=== PATIENT | male | born 1935 | race Hispanic/Latino ===

== ENCOUNTER 2018-02-08 10:08 | Day surgery (SDC) | payer MEDICARE, BC ==
[2018-02-08 11:06] VITALS: BMI 25.9
--- NOTE | 2018-02-08 11:08 | CP.SDSHP ---
Same Day Surgery H & P - History Proposed Procedure: colonoscopy Pre-Op Diagnosis: screen - Previous Medical/Surgical History Endocrine/Metabolic: Diabetes - Allergies Allergies: Allergies cortisone Allergy (Severe, Verified 02/16/16 19:54) ITCHING - Physical Exam Mental Status: Alert & Oriented x3 Heart: WNL Lungs: WNL GI: WNL - Impression Impression: screen Pt. Evaluated Today:Candidate for Anesthesia & Procedure: Yes - Date & Time Date: 02/08/18 Time: 11:08 Short Stay Discharge - Short Stay Discharge Admitting Diagnosis/Reason for Visit: ENCOUNTER FOR SCREENING FOR MALIGNANT NEOPLASM OF Disposition: HOME/ ROUTINE
[2018-02-08] MEDS ORDERED: Lactated Ringer's 1,000 ML IV ONE ×2 (11:30)
[2018-02-08] MEDS ORDERED: Propofol 10 mg/ml Inj (20 ML) ONE (11:34)
[2018-02-08 12:36] VITALS: PULSE 50
[2018-02-08 12:38] VITALS: O2SAT 100
[2018-02-08 13:52] VITALS: BP 154/64; RESP 14; TEMP 97.4
== END 2018-02-08 13:45 | disposition home or self-care (01) ==
LOC: C.ENDO 10:08
PROVIDERS: ATTEND Internal Medicine Gastroenterology
DX: K57.30 Diverticulosis of large intestine without perforation or abscess without bleeding (principal); K62.5 Hemorrhage of anus and rectum; E11.9 Type 2 diabetes mellitus without complications; E78.5 Hyperlipidemia, unspecified; I10 Essential (primary) hypertension
CPT/HCPCS: 45378; 82948; J2704; J7120

== ENCOUNTER 2018-08-29 18:29 | Emergency (ER) | payer MEDICARE, BC ==
[2018-08-29 18:29] VITALS: BMI 25.9
[2018-08-29 18:42] VITALS: TEMP 98; O2SAT 96
--- NOTE | 2018-08-29 19:43 | C.PDOC ---
History Of Present Illness 83 year old male presents to the ED for evaluation. Patient was sleeping in his wheelchair at home, patient fell and hit his head that happened 2 days ago. Patient denies fever, chills, nausea, vomit, dizziness, visual changes, weakness, numbness, CP, SOB, palpitations. - HPI Time Seen by Provider: 08/29/18 19:21 Chief Complaint (Nursing): Trauma History Per: Patient History/Exam Limitations: no limitations Onset/Duration Of Symptoms: Days (2) Injury Occurred (Timing): Days Ago: (2) Location Of Injury: Anterior: Head Recent travel outside of the [facility]: No Additional History Per: Patient - Fall Fall:Prior To Injury: Slipped Past Medical History Reviewed: Historical Data, Nursing Documentation, Vital Signs Vital Signs: Last Vital Signs Temp 98 F 08/29/18 18:36 Pulse 73 08/29/18 18:36 Resp 16 08/29/18 18:36 BP 158/73 H 08/29/18 18:36 Pulse Ox 96 08/29/18 18:36 - Medical History PMH: Anxiety, Cardia Arrhythmia, Colonic Polyps, HTN Denies: Chronic Kidney Disease Surgical History: No Surg Hx Family History: States: Unknown Family Hx - Social History Hx Alcohol Use: No Hx Substance Use: No - Immunization History Hx Tetanus Toxoid Vaccination: No Hx Influenza Vaccination: No Hx Pneumococcal Vaccination: No Review Of Systems Constitutional: Negative for: Fever, Chills Eyes: Negative for: Vision Change Cardiovascular: Negative for: Chest Pain, Palpitations Respiratory: Negative for: Cough, Shortness of Breath Gastrointestinal: Negative for: Nausea, Vomiting, Abdominal Pain Musculoskeletal: Negative for: Neck Pain Neurological: Positive for: Headache. Negative for: Weakness, Numbness, Dizziness Physical Exam - Physical Exam Appears: Non-toxic, No Acute Distress Skin: Warm, Dry Head: Normacephalic Eye(s): bilateral: Normal Inspection, PERRL, EOMI Neck: No Midline Cervical Tenderness, Supple Chest: Symmetrical Cardiovascular: Rhythm Regular Respiratory: No Rales, No Rhonchi, No Wheezing Gastrointestinal/Abdominal: Soft, No Tenderness, No Guarding, No Rebound Extremity: Left: Atraumatic, Normal Color And Temperature, Normal ROM, Right: Other (BKA) Neurological/Psych: Oriented x3, Normal Speech, Normal Cognition Gait: With Assistance (wheelchair) ED Course And Treatment O2 Sat by Pulse Oximetry: 96 (ON RA) Pulse Ox Interpretation: Normal - CT Scan/US CT head Other Rad Studies (CT/US): Read By Radiologist, Radiology Report Reviewed CT/US Interpretation: EXAM: CT Head without Intravenous Contrast. CLINICAL HISTORY: HEAD INJURY. S/P FALL. TECHNIQUE: Axial computed tomography images of the head/brain without intravenous contrast. 0.00 mGy-cm. COMPARISON: None provided. FINDINGS: BRAIN. Chronic periventricular and subcortical microvascular disease is seen. VENTRICLES: There is generalized parenchymal atrophy noted as demonstrated by symmetrical dilatation of ventricles and sulci. ORBITS: The orbits are unremarkable. SINUSES AND MASTOIDS: The paranasal sinuses and mastoid air cells are clear. BONES: No fracture. SOFT TISSUES: Unremarkable. MISCELLANEOUS: No acute intracranial pathology. IMPRESSION: 1. There is generalized parenchymal atrophy noted as demonstrated by symmetrical dilatation of ventricles and sulci. 2. Chronic periventricular and subcortical microvascular disease is seen. 3. No acute intracranial pathology. . Electronically signed on Aug 29, 2018 9:44:58 PM EST by: Javier Nicholas M.D., VEL Certified By ABR & CBCCT. Fellowship Trained MRI and CT Specialist. CT cspine Other Rad Studies (CT/US): Read By Radiologist, Radiology Report Reviewed CT/US Interpretation: CLINICAL HISTORY: Neck pain. Fall. TECHNIQUE: Multiple axial images were obtained through the cervical spine. Images were also reconstructed in coronal and sagittal planes. 423 mGy-cm. COMMENTS: There is no fracture visualized. The paraspinal soft tissues are unremarkable. There are no lytic or blastic lesions. Straightening of cervical lordosis is seen, suggesting muscular spasm. There is evidence of severe multilevel disk disease, demonstrated by prominent anterior and posterior marginal osteophytosis and endplate sclerosis. Grade 1 anterolisthesis of C3 on C4 is seen, measuring approximately 2 mm. IMPRESSION: 1. Multilevel disk pathology most severe at C4-C5 to C6-C7. 2. Straightening of cervical lordosis is seen, suggesting muscular spasm. 3. Grade 1 anterolisthesis of C3 on C4. 4. No acute fracture. Thank you for your kind referral of this patient. We appreciate the opportunity to participate in this patient's care. . Electronically signed on Aug 29, 2018 9:48:16 PM EST by: Jaiver Nicholas M.D., VEL Certified By ABR & CBCCT. Fellowship Trained MRI and CT Specialist Progress Note: Plan: - CT head. - CT C cspine Reevaluation Time: 21:53 Reassessment Condition: Improved Medical Decision Making Medical Decision Making: Upon provider reevaluation patient is feeling better, is medically stable, and requires no further treatment in the ED at this time. Patient will be discharged home . Counseling was provided and all questions were answered regarding diagnosis and need for follow up with dr nguyễn. There is agreement to discharge plan. Return if symptoms persist or worsen. Disposition Counseled Patient/Family Regarding: Studies Performed, Diagnosis, Need For Followup - Disposition Referrals: Lyle Nguyễn MD [Staff Provider] - Disposition: HOME/ ROUTINE Disposition Time: 19:42 Condition: FAIR Additional Instructions: Please return if symptoms recur Instructions: Minor Head Injury (DC) Forms: [facility] ([place]) - Clinical Impression Clinical Impression: Minor head injury without loss of consciousness - Scribe Statement The provider has reviewed the documentation as recorded by the Scribe Sheng Bean All medical record entries made by the Scribe were at my direction and personally dictated by me. I have reviewed the chart and agree that the record accurately reflects my personal performance of the history, physical exam, medical decision making, and the department course for this patient. I have also personally directed, reviewed, and agree with the discharge instructions and disposition.
[2018-08-29 22:59] VITALS: BP 171/62; PULSE 66; RESP 14
--- NOTE | 2018-08-30 09:48 | CT ---
Date of service: 08/29/2018 PROCEDURE: CT HEAD WITHOUT CONTRAST. HISTORY: fall COMPARISON: None available. TECHNIQUE: Axial computed tomography images were obtained through the head/brain without intravenous contrast. Radiation dose: Total exam DLP = 1115.18 mGy-cm. This CT exam was performed using one or more of the following dose reduction techniques: Automated exposure control, adjustment of the mA and/or kV according to patient size, and/or use of iterative reconstruction technique. FINDINGS: HEMORRHAGE: No intracranial hemorrhage. BRAIN: No mass effect or edema. Scattered focal lucencies in the subcortical and periventricular white matter suggestive for chronic microvascular ischemic change. Prominence of the ventricles and sulci consistent with atrophy. Left basal ganglia lacunar infarct. VENTRICLES: Unremarkable. No hydrocephalus. CALVARIUM: Unremarkable. PARANASAL SINUSES: Mild mucosal thickening of the ethmoid air cells. MASTOID AIR CELLS: Unremarkable as visualized. No inflammatory changes. OTHER FINDINGS: Intracranial arterial calcifications. IMPRESSION: Generalized parenchymal atrophy. Chronic microvascular ischemic change. If symptoms persist, consider correlation with MRI. A preliminary report was generated at 9:44 p.m. on 08/29/[address] Javier Nicholas from [employer].
--- NOTE | 2018-08-30 10:10 | CT ---
Date of service: 08/29/2018 PROCEDURE: CT Cervical Spine without contrast HISTORY: fall COMPARISON: None available. TECHNIQUE: Axial computed tomography images were obtained of the cervical spine without the use of intravenous contrast. Coronal and sagittal reformatted images were created and reviewed. Radiation dose: Total exam DLP = 423.48 mGy-cm. This CT exam was performed using one or more of the following dose reduction techniques: Automated exposure control, adjustment of the mA and/or kV according to patient size, and/or use of iterative reconstruction technique. FINDINGS: VERTEBRAE: There is mild levoscoliosis in the cervical spine. There is degenerative 4 mm anterior listhesis of C3 on C4. There is straightening of the cervical spine with loss of normal cervical lordosis. There is no acute fracture or traumatic anterior listhesis. There is diffuse bone demineralization. The craniocervical junction is normal. The atlantoaxial joint is normal. DISCS/SPINAL CANAL/NEURAL FORAMINA: There is advanced multilevel degenerative disc disease from C4-5 to C6-7 due to combination of disc osteophyte complexes, uncovertebral joint hypertrophy and advanced multilevel facet arthropathy on the right, worse at C6-7 with moderate to severe neural foraminal narrowing and moderate spinal canal stenosis. PARASPINAL SOFT TISSUES: No prevertebral soft tissue thickening. The paraspinous soft tissues are normal. OTHER FINDINGS: None. IMPRESSION: No acute fracture or traumatic anterior listhesis. Straightening of the cervical spine may be positional or related to muscle spasm. Multilevel degenerative disc disease, worse at C6-7 with moderate to severe neural foraminal narrowing and moderate spinal canal stenosis. A preliminary report was provided by [employer].
== END 2018-08-29 22:06 | disposition home or self-care (01) ==
LOC: C.ER 18:29
DX: S09.90XA Unspecified injury of head, initial encounter (principal); W05.0XXA Fall from non-moving wheelchair, initial encounter; Y92.89 Other specified places as the place of occurrence of the external cause